=== PATIENT | male | born 1960 | race Caucasian/White ===

== ENCOUNTER 2018-11-16 08:07 | Day surgery (SDC) | payer BC, OTHER ==
[2018-11-15 11:33] VITALS: BMI 32.7
[2018-11-16] VITALS (14 sets, daily range): BP systolic 119–144; BP diastolic 56–78; PULSE 63–82; RESP 14–23; Ht 172.7 cm; Wt 91.0 kg
[~2018-11-16] VITALS: Ht 172.7 cm; Wt 91.0 kg
--- NOTE | 2018-11-16 08:40 | PREAC ---
Date/Time of Note Date/Time of Note DATE: 11/16/18 TIME: 08:38 Anesthesia Eval and Record Evaluation Time Pre-Procedure Interview DATE: 11/16/18 TIME: 08:38 Age 58 Sex male NPO: 8 hrs Preoperative diagnosis left 5th toe deformity Planned procedure left partial osteotomy 5th metatarsal phalangeal joint, actishield Past Medical History Past Medical History: Includes Cardio: HTN Endo: Diabetes Surgery & Anesthesia Issues No known issue (neg pshx ) Meds Anticoagulation: No Beta Jim within 24 hr: No Reason Beta Jim not given: Pt. not on B-Jim Reported Medications Benazepril Hcl* (Benazepril Hcl*) 20 Mg Tablet, 20 MG ORAL DAILY 11/16/18 Metformin Hcl* (Metformin Hcl*) 500 Mg Tablet, 1 TAB ORAL DAILY 11/16/18 Naproxen* (Naproxen*) 500 Mg Tablet, 1 TAB ORAL DAILY 11/16/18 Discontinued Reported Medications Benazepril Hcl* (Benazepril Hcl*) 10 Mg Tablet, 1 TAB ORAL DAILY 11/16/18 [None] No Conflict Check 04/24/10 Meds reviewed: Yes Allergies Coded Allergies: olive extract (Verified Allergy, Unknown, 11/16/18) shrimp (Verified Allergy, Unknown, 11/16/18) walnut (Verified Allergy, Unknown, 11/16/18) Allergies Reviewed: Yes Labs/Studies Labs Reviewed: Reviewed by anesthesiologist test: N/A Studies: ECG, CXR Pre-procedure Exam Airway: Adequate mouth opening, Adequate thyromental dist Mallampati: Mallampati II Teeth: Normal Lung: Normal Heart: Normal ASA Physical Status ASA physical status: 2 Emergency: None Planned Anesthetic General/MAC: LMA Planned Pain Management Parenteral pain med, Local by surgeon Pre-operative Attestations Prior to commencing anesthesia and surgery, the patient was re-evaluated, there was verification of: *The patient's identity *The results of appropriate recent lab work and preoperative vital signs *The above evaluation not changing prior to induction *Anesthetic plan, risk benefits, alternative and complications discussed with patient/family; questions answered; patient/family understands, accepts and wishes to proceed. ANTONIO CARRENO Nov 16, 2018 08:40
[2018-11-16] MEDS ORDERED: METF500T24 ORAL (08:48)
[2018-11-16] MEDS ORDERED: BENA10TA4 ORAL (08:48)
[2018-11-16] MEDS ORDERED: NAPR-688 ORAL (08:48)
[2018-11-16] MEDS ORDERED: BENA20TA4 ORAL (08:51)
[2018-11-16] MEDS ORDERED: MIDAZOLAM 1 MG/ML 2 ML INJ ONE (08:54)
[2018-11-16] MEDS ORDERED: LIDOCAINE 2% (SDV) 5 ML INJ ONE (08:54)
[2018-11-16] MEDS ORDERED: CEFAZOLIN 1 GM INJ ONE (08:54)
[2018-11-16] MEDS ORDERED: PROPOFOL 20 ML ONE (08:54)
[2018-11-16] MEDS ORDERED: FENTAnyl 50 MCG/ML VIAL ONE (08:54)
[2018-11-16] MEDS ORDERED: MIDAZOLAM 1 MG/ML 2 ML INJ IV PRN (09:00)
[2018-11-16] MEDS ORDERED: LABETALOL HCL 20MG INJ IV PRN (09:00)
[2018-11-16] MEDS ORDERED: HYDROmorphONE 1 MG/5 ML IV SYRINGE IV PRN ×3 (09:00)
[2018-11-16] MEDS ORDERED: MEPERIDINE 25 MG INJ IV PRN (09:00)
[2018-11-16] MEDS ORDERED: OXYCODONE/ACETAMINOPHEN (5/325) TAB PO PRN ×2 (09:00)
[2018-11-16] MEDS ORDERED: ONDANSETRON 4 MG INJ IV PRN (09:00)
[2018-11-16] MEDS ORDERED: LIDOCAINE 1% (MPF) 30 ML INJ ONE ×2 (09:22→10:09)
[2018-11-16] MEDS ORDERED: POVIDONE IODINE 10% 28.4 GM OINT ONE ×2 (09:22→10:09)
[2018-11-16] MEDS ORDERED: POLYMYXIN/BACITRACIN 1L IRRIG ONE ×2 (09:22→10:09)
--- NOTE | 2018-11-16 09:30 | HPN ---
Date/Time of Note Date/Time of Note DATE: 11/16/18 TIME: 09:30 Interval H&P Admission Note Pt. seen H&P reviewed: No system changes KIANA THACKER DPM Nov 16, 2018 09:30
[2018-11-16] MEDS ORDERED: ONDANSETRON 4 MG INJ ONE (09:53)
[2018-11-16] MEDS ORDERED: METOCLOPRAMIDE 10 MG INJ ONE (09:53)
[2018-11-16] MEDS ORDERED: FAMOTIDINE 20 MG INJ ONE (09:53)
[2018-11-16] MEDS ORDERED: KETOROLAC 30 MG INJ ONE (10:27)
--- NOTE | 2018-11-16 10:48 | SIPON ---
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
--- NOTE | 2018-11-16 12:20 | PAC ---
Date/Time of Note Date/Time of Note DATE: 11/16/18 TIME: 12:20 Post-Anesthesia Notes Post-Anesthesia Note Last documented vital signs Vital Signs Date Temp Pulse Resp B/P (MAP) Pulse Ox O2 O2 Flow FiO2 Time Delivery Rate 11/16/18 69 20 121/74 95 Room Air 11:39 (90) 11/16/18 97.8 10:54 Activity: WNL Respiratory function: WNL Cardiovascular function: WNL Mental status: Baseline Pain reasonably controlled: Yes Hydration appropriate: Yes Nausea/Vomiting absent: Yes ANTONIO CARRENO Nov 16, 2018 12:20
--- NOTE | 2018-11-17 11:59 | OPR ---
DATE OF OPERATION: 11/16/2018 PREOPERATIVE DIAGNOSIS: Deformed 5th metacarpophalangeal joint, left foot. POSTOPERATIVE DIAGNOSIS: Deformed 5th metacarpophalangeal joint, left foot. PROCEDURES: Partial ostectomy, 5th metatarsal of left foot and application of Actishield. DESCRIPTION OF PROCEDURE: The patient was brought to the surgical suite, placed in the supine position. The patient has sterile prep and drape. Tourniquet had midthigh. The patient has findings consistent with the pre and postoperative diagnosis. The first incision was the dorsal longitudinal incision over the 5th metatarsophalangeal joint. Using sharp and blunt dissection, the incision was carried deep. The head of the 5th metatarsal was freed of its attachment and resected on a slight angle going medial to lateral. The area was then cleansed, the preoperative condition having been relieved. The area was then packed with Actishield and was subcutaneously coaptated using 3-0 Vicryl and the skin was coaptated using 5-0 Nylon. The patient had an injection of 1% Xylocaine plain anesthesia then had a dressing of 0.5-inch Steri-Strips, Betadine ointment, 4 x 4 impregnated with Betadine solution and Danuta with an outer layer of Coban made into a semi-compressive dressing. The patient tolerated the surgery well and was returned to recovery room in satisfactory condition. Dictated By: KIANA BRYANT/ROSA Conf#: [id number] DID#: [id number]
--- NOTE | 2018-11-19 13:47 | OPR ---
DATE OF OPERATION: 11/16/2018 ADDENDUM: On the preoperative diagnosis and the postoperative diagnosis, it is supposed to say metatarsophalang eal joint. Dictated By: KIANA BRYANT/ROSA Conf#: [id number] DID#: [id number]
== END 2018-11-16 13:15 | disposition home or self-care (01) ==
LOC: SDS 08:07
PROVIDERS: ATTEND Podiatrist
DX: M20.5X2 Other deformities of toe(s) (acquired), left foot (principal); I10 Essential (primary) hypertension; E11.9 Type 2 diabetes mellitus without complications
CPT/HCPCS: 28124; 80053; 82962; 85025; 88304; 88311; J0690; J1885; J2250; J2405; J2765; J3010; L3260; Z7512; Z7610